=== PATIENT | male | born 1995 | race Caucasian/White ===

== ENCOUNTER 2024-03-16 19:15 | Emergency (ER) | payer BC, SELFPAY ==
[2024-03-16 19:30] VITALS: BP 120/73; PULSE 77; RESP 20; TEMP 36.9; O2SAT 97; BMI 31.7
[2024-03-16 19:45] LABS: Apearance,Urine Clear (Clear); Color,Urine Dark Yellow (Yellow)
[2024-03-16 19:46] LABS: Bilirubin,Urine Negative (Negative); Blood, Urine Negative (Negative); Glucose,Urine (UA) Negative (Negative); Ketones,Urine TRACE (Negative); Protein,Urine 1+ (Negative); Specific Gravity, Urine >= 1.030 (1.005-1.030); UTC Leukocyte Esterase,Urine Negative (Negative); UTC Nitrate,Urine Negative (Negative); Urobilinogen,Urine 1 EU/dl (0.2)
--- NOTE | 2024-03-16 20:05 | EXP.UTC ---
Discharge Plan Disposition Patient Disposition: Home, Self-Care Condition: Good Prescriptions Prescriptions: No Action No Known Home Medications Referrals Follow up/Referrals: Provider,Referral, MD [Primary Care Provider] - See instructions Activity Restrictions/Add. Instructions Additional Instructions/Restrictions: *Monitor Temp, Over the counter Motrin or Tylenol as directed/as needed Tylenol every 4 hours and Motrin every 6 hours (as long as your family doctor has told you that you can take it) for fever or pain. and straight to ER if unable to lower temp less than 101.0 after medication given *Humidifier/Vaporizer Take your previously prescribed Ibuprofen and Muscle relaxers if needed Follow up IMMEDIATELY for new or worsening symptoms or no Noticeable improvement over the next 48-72 hours. 911 for difficulty breathing or swallowing You were tested for today for COVID19 your test result should be back in the next 24 hours, you may check your results on the [facility] Portal Clinical Impressions Clinical Impression: Back pain Stand Alone Forms Stand Alone Forms: Work/School Release Instructions Patient Instructions: Thoracic Back Pain, Low Back Pain Print Language Print Language: Telugu Discharge ED Provider: Marcelina Salter [facility] [place] HPI General Stated complaint: Pain on right side of back with breathing Mode of Arrival: Ambulatory Source of Information: Patient Limitations: No Limitations Time Seen by Provider: 03/16/24 20:05 Description of Symptoms (Recalled from Triage Doc. by RN): PATIENT C/O PAIN TO RIGHT SIDE OF BACK SINCE YESTERDAY HEENT Symptoms (Recalled from RN notes): No Resp Symptoms (Recalled from RN notes): No Skin Symptoms (Recalled from RN notes): No MS Symptoms (Recalled from RN notes): Yes Functional Status (Recalled from RN notes): WNL History of Present Illness Provider Complaint: Patient states that he got drunk over the weekend and slept all day on Friday States since then he has been having achy like pain on his right side of his back States he went to work today and it was bothering him when he was lifting pulling and tugging at stuff and felt like it was catching States he had to leave work and also states that he shared a Vape with someone on Friday that tested positive for COVID so he wanted to get tested for that and needs a note for work States that pain in his back is better now and has subsided Related Data Home Medications ?Medication ?Instructions ?Recorded ?Confirmed No Known Home Medications 03/16/24 03/16/24 Allergies Allergy/AdvReac Type Severity Reaction Status Date / Time No Known Allergies Allergy Verified 03/16/24 19:43 Worker's Comp Is this a Worker's Comp case?: No PFSH [facility] Disclaimer: The information contained in this section may have been updated after the patient was seen, as this information can be updated by other users. Medical History (Updated 03/16/24 @ 20:17 by Marcelina Salter APRN) No significant past medical history Social History Smoking Status: Unknown if ever smoked alcohol intake: never current occupational status: employed Travel in the last 8 weeks: None ROS Obtained: Yes All systems reviewed & no additional complaints except as documented and Yes Systems reviewed as appropriate & no additional complaints except as documented Constitutional Constitutional: Reports system reviewed and no additional complaints, except as documented, Reports as per HPI, Denies body ache, Denies chills and Denies fever(s) ENT Ears, Nose, Mouth, and Throat: Reports system reviewed and no additional complaints, except as documented and Reports as per HPI Cardiovascular Cardiovascular: Reports system reviewed and no additional complaints, except as documented and Reports as per HPI Respiratory Respiratory: Reports system reviewed and no additional complaints, except as documented and Reports as per HPI Gastrointestinal Gastrointestingal: Reports system reviewed and no additional complaints, except as documented and as per HPI Genitourinary Male Genitourinary: Reports system reviewed and no additional complaints, except as documented, Reports as per HPI, Denies urinary frequency and Denies urinary urgency Musculoskeletal Musculoskeletal: Reports back pain Physical Exam General General appearance: alert and in no apparent distress ENT ENT exam: Present mucous membranes moist Respiratory Respiratory exam: Present normal lung sounds bilaterally; Absent respiratory distress or wheezes Cardiovascular Cardiovascular exam: Present regular rate, normal rhythm and normal heart sounds Back Exam Back 1 view image: 1. reports had a catching like feeling earlier that was worse with deep breath and movement states pain has since subsided after he left work denies pain at this time Neurological Exam Neurological exam: Present alert, oriented X3 and normal gait Medical Decision Making Rian Inquiry Pt receiving controlled substance: No Rian was queried for this patient: No Vital Signs: 03/16/24 19:30 Temperature 98.5 F Temperature Source Oral Pulse Rate [Left Brachial] 77 Respiratory Rate 20 Blood Pressure [Left Arm] 120/73 Blood Pressure Mean [Left Arm] 88 Blood Pressure Source [Left Arm] Automatic Cuff Blood Pressure Position [Left Arm] Sitting 02 Sat by Pulse Oximetry 97 Oxygen Delivery Method Room Air Lab Data Lab results reviewed: Yes I reviewed the patient's lab results. Lab Results 03/16/24 19:42: Urine Color Dark yellow, Urine Appearance Clear, Urine pH 6.0, Ur Specific [place] >= 1.030, Urine Protein 1+, Urine Glucose (UA) Negative, Urine Ketones Trace, Urine Blood Negative, Urine Nitrate Negative, Urine Bilirubin Negative, Urine Urobilinogen 1, Ur Leukocyte Esterase Negative Orders (Tests/Meds): ORDERS Category Date Time Status Covid-19 Nasal PCR ([facility]) Routine Lab 03/16/24 19:39 Received Medical Decision Narrative: Discussed xray and patient declined states that pain has now subsided wants COVID test and note for work
[2024-03-16 20:19] VITALS: BP 120/73; PULSE 77; RESP 20; TEMP 36.9; O2SAT 97
== END 2024-03-16 20:25 | disposition home or self-care (01) ==
PROVIDERS: Emergency Provider Nurse Practitioner
DX: U07.1 COVID-19 (principal); M54.50 Low back pain, unspecified
CPT/HCPCS: 81003; 87635; 99203; 99212; G0463

== ENCOUNTER 2024-11-04 17:50 | Outpatient (CLI) | payer BC, SELFPAY ==
[2024-11-10 12:48] LABS: HSV-1 DNA Negative (Negative); HSV-2 DNA Negative (Negative)
== END 2024-11-04 23:59 | disposition home or self-care (01) ==
LOC: LAB.DROPOF 11-05 13:06
PROVIDERS: PCP Nurse Practitioner; Visit Provider Nurse Practitioner
DX: L98.9 Disorder of the skin and subcutaneous tissue, unspecified (principal); T14.8XXA Other injury of unspecified body region, initial encounter
CPT/HCPCS: 87529